=== PATIENT | male | born 1945 | race Caucasian/White ===

== ENCOUNTER → 2024-12-31 09:18 | Outpatient (REF) | payer MEDICARE, BC, SELFPAY | LOC: HWRCS 09:18 | PROVIDERS: ATTENDING PHYSICIAN Internal Medicine Cardiovascular Disease; FAMILY PHYSICIAN Physician Assistant | DX: R09.89 Other specified symptoms and signs involving the circulatory and respiratory systems (principal) | CPT/HCPCS: 93306 ==

== ENCOUNTER → 2025-03-18 10:20 | Outpatient (REF) | payer MEDICARE, BC, SELFPAY | LOC: RAD 10:20 | PROVIDERS: ATTENDING PHYSICIAN Internal Medicine | DX: R07.2 Precordial pain (principal) | CPT/HCPCS: 71046 ==

== ENCOUNTER → 2025-03-30 09:57 | Outpatient (REF) | payer MEDICARE, BC, SELFPAY | LOC: HWRAD 09:57 | PROVIDERS: ATTENDING PHYSICIAN Nurse Practitioner Family; FAMILY PHYSICIAN Physician Assistant | DX: E04.1 Nontoxic single thyroid nodule (principal) | CPT/HCPCS: 76536 ==

== ENCOUNTER → 2025-04-27 08:41 | Outpatient (REF) | payer MEDICARE, BC, SELFPAY ==
[2025-04-27 09:00] VITALS: BP 122/56; BP_SYST 63
== END ==
LOC: RADI 08:41
PROVIDERS: ATTENDING PHYSICIAN Nurse Practitioner Family; FAMILY PHYSICIAN Physician Assistant
DX: E04.1 Nontoxic single thyroid nodule (principal)
CPT/HCPCS: 10005; 88173